=== PATIENT | male | born 1940 | race Caucasian/White ===

== ENCOUNTER 2021-02-03 11:50 | Inpatient (IN) ==
[2021-02-03] MEDS ORDERED: ONDANSETRON 4 MG/2 ML VIAL IV ONE ×2 (12:07→12:31)
[2021-02-03] MEDS ORDERED: HYDROmorphone 0.5 MG/0.5 ML SYRINGE IV PRN (12:07)
--- NOTE | 2021-02-03 12:17 | Emergency Department Note ---
HPI <Yany Shaikh PA-C - Last Filed: 02/03/21 14:13> General Chief complaint: Extremity Injury, Lower Stated complaint: Fall, hip pain Time Seen by Provider: 02/03/21 12:11 Source: EMS Mode of arrival: EMS History of Present Illness HPI Narrative: Narrative: This patient presents by EMS with a complaint of right hip pain. Patient reports he stumbled and fell. He did land on his backside. He felt immediate p ain to his right buttock and right hip. He was not able to get up. EMS was notified. They did find him unable to stand or move without excruciating pain. Patient reports he did not strike his head or lose conscious when he fell. He does not take blood thinners. He reports no other injuries. Related Data Previous Rx's Medication Instructions Recorded atorvastatin 20 mg tablet (Lipitor) 20 mg PO QDAY #90 tab 01/02/21 lisinopril 20 mg tablet 20 mg PO QDAY #90 tab 01/02/21 metformin 500 mg tablet,extended 500 mg PO QDAY #90 tab 01/02/21 release 24 hr tamsulosin 0.4 mg capsule (Flomax) 0.4 mg PO QHS #90 cap 01/02/21 Allergies Allergy/AdvReac Type Severity Reaction Status Date / Time Penicillins Allergy Unknown Unknown Verified 02/03/21 11:50 Review of Systems <Yany Shaikh PA-C - Last Filed: 02/03/21 14:13> ROS ROS Narrative: Narrative: Pertinent positives and negatives as noted in HPI. All other systems reviewed and negative. PFSH <Yany Shaikh PA-C - Last Filed: 02/03/21 14:13> Narrative Patient History Narrative: Narrative: Medical/Surgical/Family History All Active Problems (Updated 02/03/21 @ 14:30 by Harjinder Russo MD) Chronic kidney disease (CKD) stage G3a/A1, moderately decreased glomerular filtration rate (GFR) between 45-59 mL/min/1.73 square meter and albuminuria creatinine ratio less than 30 mg/g (Acute) Closed fracture of right hip (Acute) Medicare annual wellness visit, initial (Acute) Medicare annual wellness visit, initial (Acute) Wellness examination (Chronic) Chronic knee pain (Chronic) Metabolic syndrome (Chronic) Dyslipidemia (Chronic) Hypertension (Chronic) Type 2 diabetes mellitus (Chronic) Medical History Chronic knee pain Dyslipidemia Hypertension Medicare annual wellness visit, initial Medicare annual wellness visit, initial Metabolic syndrome Type 2 diabetes mellitus Wellness examination 11/20/17 Surgical History History of cataract surgery History of colonoscopy (12/04/12) 02/26/072012 History of surgery broken lower right leg Family History Other No pertinent family history Social History Smoking Status: Former smoker Alcohol Intake Frequency: holiday/special occasion only Substance Use: does not use Exam <Yany Shaikh PA-C - Last Filed: 02/03/21 14:13> Narrative Narrative: Narrative: Vital signs noted General: mild distress. Skin: Warm. Dry. No rash. Normal color. Eyes: PERRL. EOMI. Mouth: Membranes moist. Normal inspection. Neck: Good ROM. No meningeal signs. Supple. Cardiovascular: Regular rate and rhythm. No murmur. Respiratory: No respiratory distress. Breath sounds equal. Gastrointestinal: Abdomen soft. No tenderness. Back: Normal inspection. No midline tenderness. Extremities: Tenderness palpation of the right hip. No crepitus or obvious deformity. Exam is somewhat limited due to patient positioning. Neurovascular intact to the digits. Intact dorsalis pedis pulse to the right. Neurological: No focal neurological deficits observed. Alert. Oriented x 3 Course <Yany Shaikh PA-C - Last Filed: 02/03/21 14:13> Course Course Narrative: An IV is established and the patient is medicated with Dilaudid for pain. Zofran is given for nausea. X-rays of the right hip are reviewed by myself significant for intertrochanteric fracture. 1 view chest x-ray is without acute changes. EKG shows sinus rhythm of 54. QRS complexes are narrow at regular intervals. No ST elevation or depression. Patient is discussed with on-call orthopedic surgeon Dr. Medina who anticipates being able to repair the hip today. Patient last ate at 10 AM. Patient is also discussed with the hospitalist service and is excepted as the patient. Vital Signs Vital signs: Vital Signs Temperature 97.3 F 02/03/21 11:50 Pulse Rate 65 02/03/21 11:50 Respiratory Rate 16 02/03/21 11:50 Blood Pressure 139/47 02/03/21 11:50 Pulse Oximetry (%) 92 02/03/21 11:50 Temperature 97.2 F 02/03/21 15:50 Pulse Rate 62 02/03/21 15:50 Respiratory Rate 16 02/03/21 15:50 Blood Pressure 120/54 02/03/21 15:50 Pulse Oximetry (%) 91 02/03/21 15:50 MDM <Yany Shaikh PA-C - Last Filed: 02/03/21 14:13> MDM Narrative Medical decision making narrative: Narrative: Lab Data Result diagrams: 02/03/21 13:23 02/03/21 13:23 Labs: Lab Results 02/03/21 02/03/21 02/03/21 Range/Units 13:23 13:23 13:23 WBC 7.7 (4.5-11.0) K/mcL RBC 3.99 L (4.63-6.08) M/mcL Hgb 12.7 L (13.7-17.5) g/dL Hct 39.0 L (40.1-51.0) % MCV 97.7 (80.0-100.0) fL MCH 31.8 (26.0-34.0) pg MCHC 32.6 (31.0-36.0) g/dL RDW 12.4 (11.5-14.5) % Plt Count 197 (140-440) K/mcL MPV 10.5 H (7.4-10.4) fL Neut % (Auto) 71.8 (38.0-78.0) % Lymph % (Auto) 16.1 (15.5-49.0) % [place] % (Auto) 10.4 (1.0-12.0) % Eos % (Auto) 1.0 (0.0-7.0) % Baso % (Auto) 0.7 (0.0-2.0) % Lymph # (Auto) 1.24 L (1.50-4.80) K/mcL [place] # (Auto) 0.80 (0.10-0.90) K/mcL Eos # (Auto) 0.08 (0.00-0.70) K/mcL Baso # (Auto) 0.05 (0.00-0.30) K/mcL Absolute Neutrophils 5.52 (1.80-8.00) K/mcL PT 12.5 (11.9-14.5) sec INR 0.9 (0.9-1.1) Sodium 135 (133-145) mmol/L Potassium 4.7 (3.3-5.1) mmol/L Chloride 101 (96-108) mmol/L Carbon Dioxide 23 (22-30) mmol/L Anion Gap 11.0 (8.0-16.0) BUN 23 (8-23) mg/dL Creatinine 1.1 (0.7-1.2) mg/dL GFR Calculation 62 Glucose 166 H (70-105) mg/dL Calcium 9.5 (8.6-10.4) mg/dL Total Bilirubin 0.5 (0.1-1.0) mg/dL AST 16 (<40) U/L ALT 22 (<40) U/L Alkaline Phosphatase 93 (39-117) U/L Total Protein 6.8 (5.9-8.4) gm/dL Albumin 3.8 (3.2-5.2) gm/dL Globulin 3.0 (2.2-3.7) gm/dL Albumin/Globulin Ratio 1.3 (1.0-2.3) Urine Color Urine Appearance (Clear) Urine pH (5.0-9.0) Ur Specific [place] (1.000-1.035) Urine Protein (Negative) mg/dL Urine Glucose (UA) (Negative) mg/dL Urine Ketones (Negative) mg/dL Urine Occult Blood (Negative) mg/dL Urine Nitrate (Negative) Urine Bilirubin (Negative) mg/dL Urine Urobilinogen mg/dL Ur Leukocyte Esterase (Negative) /uL Ur Culture Indicated? 02/03/21 Range/Units 14:31 WBC (4.5-11.0) K/mcL RBC (4.63-6.08) M/mcL Hgb (13.7-17.5) g/dL Hct (40.1-51.0) % MCV (80.0-100.0) fL MCH (26.0-34.0) pg MCHC (31.0-36.0) g/dL RDW (11.5-14.5) % Plt Count (140-440) K/mcL MPV (7.4-10.4) fL Neut % (Auto) (38.0-78.0) % Lymph % (Auto) (15.5-49.0) % [place] % (Auto) (1.0-12.0) % Eos % (Auto) (0.0-7.0) % Baso % (Auto) (0.0-2.0) % Lymph # (Auto) (1.50-4.80) K/mcL [place] # (Auto) (0.10-0.90) K/mcL Eos # (Auto) (0.00-0.70) K/mcL Baso # (Auto) (0.00-0.30) K/mcL Absolute Neutrophils (1.80-8.00) K/mcL PT (11.9-14.5) sec INR (0.9-1.1) Sodium (133-145) mmol/L Potassium (3.3-5.1) mmol/L Chloride (96-108) mmol/L Carbon Dioxide (22-30) mmol/L Anion Gap (8.0-16.0) BUN (8-23) mg/dL Creatinine (0.7-1.2) mg/dL GFR Calculation Glucose (70-105) mg/dL Calcium (8.6-10.4) mg/dL Total Bilirubin (0.1-1.0) mg/dL AST (<40) U/L ALT (<40) U/L Alkaline Phosphatase (39-117) U/L Total Protein (5.9-8.4) gm/dL Albumin (3.2-5.2) gm/dL Globulin (2.2-3.7) gm/dL Albumin/Globulin Ratio (1.0-2.3) Urine Color Yellow Urine Appearance Hazy A (Clear) Urine pH 5.0 (5.0-9.0) Ur Specific [place] 1.016 (1.000-1.035) Urine Protein Negative (Negative) mg/dL Urine Glucose (UA) Negative (Negative) mg/dL Urine Ketones Negative (Negative) mg/dL Urine Occult Blood Negative (Negative) mg/dL Urine Nitrate Negative (Negative) Urine Bilirubin Negative (Negative) mg/dL Urine Urobilinogen Negative mg/dL Ur Leukocyte Esterase Negative (Negative) /uL Ur Culture Indicated? No ED POC Tests ED POC Tests: [place] - SARS Antigen Negative Discharge Plan Patient/Caregiver Discharge Instructions Pt seen by [employer]/PA only: Yes Clinical Impression: Closed fracture of right hip Patient Disposition: Xfer As Outpt/Obs ([facility]) Discharge Date/Time: 02/03/21 14:48
--- NOTE | 2021-02-03 12:28 | Emergency Department Note ---
HPI General Chief complaint: Extremity Injury, Lower Stated complaint: Fall, hip pain Time Seen by Provider: 02/03/21 12:11 Source: EMS Mode of arrival: EMS History of Present Illness HPI Narrative: Narrative: This patient presents with complaints of pain, redness and warmth to the left lower leg. She is noted this for the last several days. She reports she was seen at [facility] and was started on diuretics. The redness and pain has worsened. She is concerned she may have an infection. She has felt febrile as well as chilled. She has not had any nausea or vomiting. She denies any trauma or injury. 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 She has been doing well with that and has been ambulating without difficulty until her current symptoms developed. Related Data Home Medications Medication Instructions Recorded Confirmed Tonny Contour Next Test Invitr Strp .ROUTE 11/12/17 12/28/20 Tonny Microlet Lancets .ROUTE 11/12/17 12/28/20 Misc(Lancets) Previous Rx's Medication Instructions Recorded ipratropium bromide 21 mcg (0.03 2 spray INTRANASAL BID-TID PRN #30 07/20/20 %) nasal spray ml atorvastatin 20 mg tablet (Lipitor) 20 mg PO QDAY #90 tab 01/02/21 lisinopril 20 mg tablet 20 mg PO QDAY #90 tab 01/02/21 metformin 500 mg tablet,extended 500 mg PO QDAY #90 tab 01/02/21 release 24 hr tamsulosin 0.4 mg capsule (Flomax) 0.4 mg PO QHS #90 cap 01/02/21 Allergies Allergy/AdvReac Type Severity Reaction Status Date / Time Penicillins Allergy Unknown Unknown Verified 02/03/21 11:50 Review of Systems ROS ROS Narrative: Narrative: Pertinent positives and negatives as noted in HPI. All other systems reviewed and negative. PFSH Narrative Patient History Narrative: Narrative: Medical/Surgical/Family History All Active Problems Medicare annual wellness visit, initial (Acute) Medicare annual wellness visit, initial (Acute) Wellness examination (Chronic) Chronic knee pain (Chronic) Metabolic syndrome (Chronic) Dyslipidemia (Chronic) Hypertension (Chronic) Type 2 diabetes mellitus (Chronic) Medical History Chronic knee pain Dyslipidemia Hypertension Medicare annual wellness visit, initial Medicare annual wellness visit, initial Metabolic syndrome Type 2 diabetes mellitus Wellness examination 11/20/17 Surgical History History of cataract surgery History of colonoscopy (12/04/12) 02/26/072012 History of surgery broken lower right leg Family History Other No pertinent family history Social History Smoking Status: Former smoker Alcohol Intake Frequency: holiday/special occasion only Substance Use: does not use Exam Narrative Narrative: Narrative: Vital signs noted General: mild distress. Skin: Warm. Dry. No rash. Normal color. Eyes: PERRL. EOMI. Mouth: Membranes moist. Normal inspection. Neck: Good ROM. No meningeal signs. Supple. Cardiovascular: Regular rate and rhythm. No murmur. Respiratory: No respiratory distress. Breath sounds equal. No wheezing/rales/rhonchi. Gastrointestinal: Abdomen soft. No tenderness. No distention. Normal bowel sounds. No rebound tenderness or guarding. Extremities: Erythema, warmth and tenderness noted to the left lower leg. Erythema extends in a sock fashion up to the mid briones. It is predominantly to the lateral aspect. There are no blisters or bulla. No weeping. Warmth and skin thickening noted. Dorsalis pedis pulse intact. Neurological: No focal neurological deficits observed. Alert. Oriented x 3 Course Course Course Narrative: An IV is established in anticipation of antibiotic administration Labs ordered reviewed Vital Signs Vital signs: Vital Signs Temperature 97.3 F 02/03/21 11:50 Pulse Rate 65 02/03/21 11:50 Respiratory Rate 16 02/03/21 11:50 Blood Pressure 139/47 02/03/21 11:50 Pulse Oximetry (%) 92 02/03/21 11:50 Temperature 97.3 F 02/03/21 11:50 Pulse Rate 65 02/03/21 11:50 Respiratory Rate 16 02/03/21 11:50 Blood Pressure 139/47 02/03/21 11:50 Pulse Oximetry (%) 92 02/03/21 11:50 MDM MDM Narrative Medical decision making narrative: Narrative: Discharge Plan Patient/Caregiver Discharge Instructions Follow up with: Oreland,Jessica S., DO [Primary Care Provider] - Prescriptions: No Action metformin 500 mg tablet extended release 24 hr 500 mg PO QDAY Qty: 90 1RF lisinopril 20 mg tablet 20 mg PO QDAY Qty: 90 1RF atorvastatin [Lipitor] 20 mg tablet 20 mg PO QDAY Qty: 90 1RF tamsulosin [Flomax] 0.4 mg capsule 0.4 mg PO QHS Qty: 90 1RF Tonny Microlet Lancets Misc(Lancets) .Route 0RF Label Comments: .Route Rx Instructions: .Route Tonny Contour Next Test Invitr Strp .Route 0RF Label Comments: .Route Rx Instructions: .Route ipratropium bromide 0.03 % spray,non-aerosol 2 spray INTRANASAL BID-TID PRN (Reason: allergy symptoms) Qty: 30 5RF Rx Instructions: administer into each nostril
--- NOTE | 2021-02-03 13:44 | XRay Report ---
INDICATION: fall, hip pain TECHNIQUE: AP pelvis. AP and lateral right hip COMPARISON: None. FINDINGS: Comminuted intertrochanteric right hip fracture with varus angulation and medial displacement. Pelvis is negative. No fracture. No lytic lesion. Sacrum is negative. Left hip is negative. Prominent fecal material consistent with constipation IMPRESSION: Comminuted displaced right intratrochanteric hip fracture Interpreted and Authenticated by: Sean Gomes 02/03/21
--- NOTE | 2021-02-03 13:52 | XRay Report ---
INDICATION: pre-op. Hip fracture TECHNIQUE: AP supine chest x-ray COMPARISON: None FINDINGS: Lungs:Focal parenchymal density in left upper lobe. Follow-up PA and lateral chest x-ray when clinically appropriate. No parenchymal consolidation. No evidence for pneumonia. Heart, vascular:No significant cardiomegaly. Pulmonary vascularity is normal. No pulmonary edema or pulmonary congestion Mediastinum, renetta:No mediastinal widening. No hilar mass Pleura:No pleural fluid. No pleural-based mass or calcification Skeletal:Negative. IMPRESSION: 1. Focal density left upper lobe may be chronic. Follow-up PA and lateral chest x-ray recommended for better evaluation 2. Otherwise negative AP supine chest x-ray Interpreted and Authenticated by: Sean Gomes 02/03/21
[2021-02-03] MEDS ORDERED: 0.9 % SODIUM CHLORIDE 1,000 ML IV SCH ×2 (14:00→15:01)
[2021-02-03 14:10] LABS: Basophils # (Auto) 0.05 K/mcL (0.00-0.30); Basophils % (Auto) 0.7 % (0.0-2.0); Eosinophils # (Auto) 0.08 K/mcL (0.00-0.70); Hemoglobin 12.7 g/dL (13.7-17.5); Lymphocytes # (Auto) 1.24 K/mcL (1.50-4.80); Lymphocytes % (Auto) 16.1 % (15.5-49.0); Mean Cell Volume 97.7 fL (80.0-100.0); Mean Corpuscular HGB Conc 32.6 g/dL (31.0-36.0); Mean Platelet Volume 10.5 fL (7.4-10.4); Monocytes % (Auto) 10.4 % (1.0-12.0); Neutrophils % (Auto) 71.8 % (38.0-78.0); Platelet Count 197 K/mcL (140-440); RBC 3.99 M/mcL (4.63-6.08); Red Cell Distribution Width 12.4 % (11.5-14.5); WBC 7.7 K/mcL (4.5-11.0)
[2021-02-03] MEDS ORDERED: DEXTROSE 31 GM ORAL.SUSP PO PRN ×2 (14:13→15:01)
[2021-02-03] MEDS ORDERED: DEXTROSE 50% 50 ML VIAL IV PRN ×2 (14:13→15:01)
--- NOTE | 2021-02-03 14:17 | Internal Med History&Physical ---
HPI History of Present Illness Patient information: Note initiated : 02/03/21 at 2:15 pm Service Date, if different from initiated Date: [] Patient: Cirilo Matthew 80 y/o M admitted on for Fall, hip pain. Chief Complaint: [right hip fracture] Chief complaint: right hip fracture History of present illness: Mr. Matthew is a 80 year old M history of essential hypertension, mixed dyslipidemia, insulin-dependent type 2 diabetes mellitus, chronic kidney disease stage III, presenting with accidental fall with right hip fractures. Earlier today, patient's was in his friend's house and he was walking down the stairs and he stumbled and fell landing with his right side. He denies any chest pain, palpitations, confusions, lightheadedness, dizziness, or loss of consciousness right before, during, or after the accident. He currently denies any right hip pain at rest. Vital signs at ED presentations were all within normal limits. Labs significant with lack of leukocytosis with WBC 7.7. H&H 12.7 and 39.0, res pectively. Chemistry pending. Hip x-ray showing comminuted displaced right intratrochanteric hip fracture. PFSH PFSH All Active Problems (Updated 02/03/21 @ 14:30 by Harjinder Russo MD) Chronic kidney disease (CKD) stage G3a/A1, moderately decreased glomerular filtration rate (GFR) between 45-59 mL/min/1.73 square meter and albuminuria creatinine ratio less than 30 mg/g (Acute) Closed fracture of right hip (Acute) Medicare annual wellness visit, initial (Acute) Medicare annual wellness visit, initial (Acute) Wellness examination (Chronic) Chronic knee pain (Chronic) Metabolic syndrome (Chronic) Dyslipidemia (Chronic) Hypertension (Chronic) Type 2 diabetes mellitus (Chronic) Medical History Chronic knee pain Dyslipidemia Hypertension Medicare annual wellness visit, initial Medicare annual wellness visit, initial Metabolic syndrome Type 2 diabetes mellitus Wellness examination 11/20/17 Surgical History History of cataract surgery History of colonoscopy (12/04/12) 02/26/072012 History of surgery broken lower right leg Family History Other No pertinent family history Social History marital status: occupational status: retired alcohol intake frequency: holiday/special occasion only substance use type: does not use MEDS/ALLERGIES Home Medications and Allergies Home Medications Medication Instructions Recorded Confirmed Type Tonny Contour Next Test Invitr Strp .ROUTE 11/12/17 12/28/20 History Tonny Microlet Lancets .ROUTE 11/12/17 12/28/20 History Misc(Lancets) ipratropium bromide 21 mcg (0.03 2 spray INTRANASAL BID-TID PRN #30 07/21/19 12/28/20 Rx %) nasal spray ml atorvastatin 20 mg tablet (Lipitor) 20 mg PO QDAY #90 tab 01/02/21 Rx lisinopril 20 mg tablet 20 mg PO QDAY #90 tab 01/02/21 Rx metformin 500 mg tablet,extended 500 mg PO QDAY #90 tab 01/02/21 Rx release 24 hr tamsulosin 0.4 mg capsule (Flomax) 0.4 mg PO QHS #90 cap 01/02/21 Rx Allergies Allergy/AdvReac Type Severity Reaction Status Date / Time Penicillins Allergy Unknown Unknown Verified 02/03/21 11:50 EXAM Constitutional Vitals: Temp Pulse Resp BP Pulse Ox 36.3 C 59 L 16 122/48 95 02/03/21 11:50 02/03/21 14:01 02/03/21 11:50 02/03/21 14:01 02/03/21 14:01 General appearance: cooperative and no acute distress Head Head exam: Present atraumatic and normocephalic Eye Eye exam: Present EOMI and PERRL ENT ENT exam: Present mucous membranes moist, normal exam and normal external ear exam Neck Neck exam: Present normal inspection; Absent lymphadenopathy, tenderness or thyromegaly Respiratory Respiratory exam: Absent accessory muscle use, respiratory distress or wheezes Cardiovascular Cardiovascular exam: Present normal rate and rhythm; Absent JVD GI/Abdominal GI/Abdominal exam: Present normal bowel sounds and soft; Absent organomegaly or tenderness Rectal Rectal exam: Present deferred Extremities Exam Extremities exam: Present normal capillary refill and tenderness; Absent full ROM or normal inspection Neurological Exam Neurological exam: Present alert, CN II-XII intact and oriented X3; Absent motor sensory deficit Psychiatric Psychiatric exam: Present normal affect and normal mood; Absent anxious or depressed Skin Skin exam: Present dry and intact DATA Data Completed and Pending Labs: Labs from last 24 hours 02/03/21 02/03/21 02/03/21 13:23 13:23 13:23 WBC 7.7 RBC 3.99 L Hgb 12.7 L Hct 39.0 L MCV 97.7 MCH 31.8 MCHC 32.6 RDW 12.4 Plt Count 197 MPV 10.5 H Neut % (Auto) 71.8 Lymph % (Auto) 16.1 Door % (Auto) 10.4 Eos % (Auto) 1.0 Baso % (Auto) 0.7 Lymph # (Auto) 1.24 L Door # (Auto) 0.80 Eos # (Auto) 0.08 Baso # (Auto) 0.05 Absolute Neutrophils 5.52 PT Pending INR Pending Sodium Pending Potassium Pending Chloride Pending Carbon Dioxide Pending Anion Gap Pending BUN Pending Creatinine Pending GFR Calculation Pending Glucose Pending Calcium Pending Total Bilirubin Pending AST Pending ALT Pending Alkaline Phosphatase Pending Total Protein Pending Albumin Pending Globulin Pending Albumin/Globulin Ratio Pending A/P Assessment and plan (1) Closed fracture of right hip: Status: Acute (2) Dyslipidemia: Status: Chronic (3) Hypertension: Status: Chronic (4) Type 2 diabetes mellitus: Status: Chronic (5) Chronic kidney disease (CKD) stage G3a/A1, moderately decreased glomerular filtration rate (GFR) between 45-59 mL/min/1.73 square meter and albuminuria creatinine ratio less than 30 mg/g: Status: Acute Narrative A/P Narrative: Assessment and Plans: 1. Right comminuted displaced right intratrochanteric hip fracture: Admit to inpatient med surg Dr. Medina consulted for possible surgery ORIF this afternoon vs tomorrow NPO for now and NS@100cc/hr Bed rest Tylenol PRN mild pain Oxycodone PRN moderate pain Morphine IV PRN severe pain Physical therapy Occupational therapy 2. T2DM: HgA1c Hold Metformin Low dose correctional scale insulin AC HS Accu Chek AC HS Hypoglycemia protocol NPO for now and NS@100cc/hr, diabetic diet after surgery 3. Essential HTN: Currently soft blood pressure Hold oral antihypertensives for now 4. Mixed dyslipidemia: Statin therapy 5. Chronic kidney disease stage 3: Avoid nephrotoxic agents NS@100cc/hr CMP in the morning to trend kidney functions GI ppx: not currently indicated DVT ppx: SCDs Code status: Full Prognosis: stable Disposition: inpatient med surg; PT OT Time Spent With Patient Time: Total time spent is greater than 50% in coordination of care (as documented) at patient's floor/unit and/or counseling patient: Total time spent with greater than 50% in coordination of care (as documented) at patient's floor/unit and/or counseling patient:: 25 - 35 minutes
[2021-02-03 14:30] LABS: ALT/SGPT 22 U/L (<40); AST/SGOT 16 U/L (<40); Albumin 3.8 gm/dL (3.2-5.2); Albumin/Globulin Ratio 1.3 (1.0-2.3); Alkaline Phosphatase 93 U/L (39-117); Bilirubin,Total 0.5 mg/dL (0.1-1.0); Blood Urea Nitrogen 23 mg/dL (8-23); Calcium 9.5 mg/dL (8.6-10.4); Carbon Dioxide 23 mmol/L (22-30); Chloride 101 mmol/L (96-108); Glomerular Filtration Rate 62; Glucose 166 mg/dL (70-105)
[2021-02-03 14:47] LABS: INR 0.9 (0.9-1.1); Prothrombin Time 12.5 sec (11.9-14.5)
[2021-02-03] MEDS ORDERED: IPRATROPIUM 0.03% NASAL SPRAY BOTTLE 30ML NAS PRN (15:01)
[2021-02-03] MEDS ORDERED: ZOLPIDEM 5 MG TABLET PO PRN (15:01)
[2021-02-03] MEDS ORDERED: ACETAMINOPHEN 325 MG TABLET PO PRN (15:01)
[2021-02-03] MEDS ORDERED: IPRATROPIUM/ALBUTEROL 3 ML AMPUL.NEB NEB PRN ×2 (15:01→18:45)
[2021-02-03] MEDS ORDERED: morphine 4 MG/ML VIAL IV PRN ×2 (15:01→19:11)
[2021-02-03] MEDS ORDERED: ONDANSETRON 4 MG/2 ML VIAL IV PRN (15:01)
[2021-02-03] MEDS ORDERED: oxyCODONE HCL 5 MG TABLET PO PRN (15:01)
[2021-02-03 15:35] LABS: Appearance,Urine HAZY (Clear); Bilirubin,Urine Negative (Negative); Color,Urine YELLOW; Culture Indicated,Urine No; Glucose,Urine (UA) Negative (Negative); Ketones,Urine Negative (Negative); Leukocyte Esterase,Urine Negative /uL (Negative); Nitrate,Urine Negative (Negative); Protein,Urine Negative (Negative); Specific Gravity,Urine 1.016 (1.000-1.035); Urine Blood Negative (Negative); Urobilinogen,Urine Negative
[2021-02-03] MEDS: INSULIN LISPRO 1 UNIT/0.01 ML UNIT SQ SCH ×2 (16:06→20:40)
[2021-02-03] MEDS ORDERED: INSULIN LISPRO 1 UNIT/0.01 ML UNIT SQ SCH (17:00)
--- NOTE | 2021-02-03 17:17 | Orthopedic History & Physical ---
HPI History of Present Illness Patient information: Note initiated : 02/03/21 at 5:05 pm Service Date, if different from initiated Date: [] Patient: Cirilo Matthew 80 y/o M admitted on 02/03/21 for Fall, hip pain. Chief Complaint: [right hp pain s/p fall ] History of present illness: Mr. Matthew is a 80 year old diabetic resident of [place] who was visiting a friend when he suffered a mechanical fall, he was transported to [facility] ED where imaging revealed a intertrochanteric fracture of the right hip. Dr. Medina of orthopedics was consulted for treatment. Review of Systems All systems: reviewed and no additional remarkable complaints except as stated PFSH PFSH All Active Problems Chronic kidney disease (CKD) stage G3a/A1, moderately decreased glomerular filtration rate (GFR) between 45-59 mL/min/1.73 square meter and albuminuria creatinine ratio less than 30 mg/g (Acute) Closed fracture of right hip (Acute) Medicare annual wellness visit, initial (Acute) Medicare annual wellness visit, initial (Acute) Wellness examination (Chronic) Chronic knee pain (Chronic) Metabolic syndrome (Chronic) Dyslipidemia (Chronic) Hypertension (Chronic) Type 2 diabetes mellitus (Chronic) Medical History Chronic knee pain Dyslipidemia Hypertension Medicare annual wellness visit, initial Medicare annual wellness visit, initial Metabolic syndrome Type 2 diabetes mellitus Wellness examination 11/20/17 Surgical History History of cataract surgery History of colonoscopy (12/04/12) 02/26/072012 History of surgery broken lower right leg Family History Other No pertinent family history Social History marital status: occupational status: retired alcohol intake frequency: holiday/special occasion only substance use type: does not use MEDS/ALLERGIES Home Medications and Allergies Home Medications Medication Instructions Recorded Confirmed Type atorvastatin 20 mg tablet (Lipitor) 20 mg PO QDAY #90 tab 01/02/21 02/03/21 Rx lisinopril 20 mg tablet 20 mg PO QDAY #90 tab 01/02/21 02/03/21 Rx metformin 500 mg tablet,extended 500 mg PO QDAY #90 tab 01/02/21 02/03/21 Rx release 24 hr tamsulosin 0.4 mg capsule (Flomax) 0.4 mg PO QHS #90 cap 01/02/21 02/03/21 Rx Allergies Allergy/AdvReac Type Severity Reaction Status Date / Time Penicillins Allergy Unknown Unknown Verified 02/03/21 11:50 Physical Examination Narrative Narrative: Narrative: Results Labs Result Diagrams: 02/03/21 13:23 02/03/21 13:23 Labs: Abnormal lab results 02/03/21 02/03/21 02/03/21 Range/Units 13:23 13:23 14:31 RBC 3.99 L (4.63-6.08) M/mcL Hgb 12.7 L (13.7-17.5) g/dL Hct 39.0 L (40.1-51.0) % MPV 10.5 H (7.4-10.4) fL Lymph # (Auto) 1.24 L (1.50-4.80) K/mcL Glucose 166 H (70-105) mg/dL Urine Appearance Hazy A (Clear) H & H 02/03/21 Range/Units 13:23 Hgb 12.7 L (13.7-17.5) g/dL Hct 39.0 L (40.1-51.0) % Coagulation 02/03/21 Range/Units 13:23 INR 0.9 (0.9-1.1) All other labs normal. A/P Narrative A/P Narrative: On exam patient is seated in bed in no acute distress. lungs are equal and clear bilat and heart is normal rate and rhythm. eyes are SHAILA and mucus membranes are moist. Chest, abdomen, and left side pelvis are non-tender to palpation. He is able to move all four extremities which are warm, well perfused and neuro intact. At the right hip and pelvis area there is tenderness to palpation and with any ROM. Imaging is consistent with a intertrochanteric hip fracture. Options were presented to the patient including non-surgical and surgery non- surgical carries the risks of increased pain, loss of ROM and further injury to nerves and blood vessels. Surgical option consiting of open reduction internal fixation via TFNA hip nail to take place with Dr. Medina surgeon and Zhou BORRERO to take place semi emergently. Surgical risks were explained to the patient to include but not limited to: pain, bleeding, infection, injury to adjacent structures, need for further surgery, implant failure, stroke risk, cardiac risk, anesthesia reactions and . Patient understands these risks and wishes to proceed with surgery. Time Spent With Patient Time: Total time spent is greater than 50% in coordination of care (as documented) at patient's floor/unit and/or counseling patient:
[2021-02-03] MEDS ORDERED: PHENYLephrine 1 MG/10 ML SYRINGE (ANEST) ONE (17:45)
[2021-02-03] MEDS ORDERED: fentaNYL 100 MCG/2 ML VIAL IV ONE (17:45)
[2021-02-03] MEDS ORDERED: GLYCOPYRROLATE 0.2 MG/ML VIAL IV ONE (17:45)
[2021-02-03] MEDS ORDERED: ceFAZolin 2 GM in DEXTROSE 5% IN WATER 50 ML IV SCH ×2 (17:45→19:15)
[2021-02-03] MEDS ORDERED: ONDANSETRON 4 MG/2 ML VIAL ONE (17:45)
[2021-02-03] MEDS ORDERED: LIDOCAINE HCL/PF 100 MG/5 ML SYRINGE IV ONE (17:45)
[2021-02-03] MEDS ORDERED: MAGNESIUM SULFATE 2 GM/50 ML BAG IV ONE (17:45)
[2021-02-03] MEDS ORDERED: TRANEXAMIC ACID 1,000 MG/10 ML VIAL ONE (17:45)
[2021-02-03] MEDS ORDERED: PROPOFOL 200 MG/20 ML VIAL IV ONE (17:45)
[2021-02-03] MEDS ORDERED: KETAMINE 50 MG/ML Syringe (ANEST) IV ONE (17:45)
[2021-02-03] MEDS ORDERED: MIDAZOLAM 2 MG/2 ML VIAL ONE (17:45)
[2021-02-03] MEDS ORDERED: LACTATED RINGERS 1,000 ML IV SCH (18:45)
[2021-02-03] MEDS ORDERED: LACTATED RINGERS 250 ML IV PRN (18:45)
[2021-02-03] MEDS ORDERED: fentaNYL 100 MCG/2 ML VIAL IV PRN (18:45)
[2021-02-03] MEDS ORDERED: FLUMAZENIL 0.1 MG/ML ML IV PRN (18:45)
[2021-02-03] MEDS ORDERED: METHOCARBAMOL 1,000 MG/10 ML VIAL IV PRN (18:45)
[2021-02-03] MEDS ORDERED: ACETAMINOPHEN 1,000 MG/100 ML BAG IV ONE ×2 (18:45→19:10)
[2021-02-03] MEDS ORDERED: NALOXONE HCL 0.4 MG/ML VIAL IV PRN (18:45)
--- NOTE | 2021-02-03 19:08 | General Surgery Procedure Note ---
Date of procedure: Note initiated : 02/03/21 at 7:07 pm Service Date, if different from initiated Date: [] Pre-op diagnosis: right hip intertrochanteric fracture Post-op diagnosis: same Procedure: right hip TFNa nail Anesthesia: ARNALDO Surgeon: Sean Medina Balloon Tester: Carlton Diaz Estimated blood loss: 100 Pathology: none sent Condition: stable Disposition: PACU
--- NOTE | 2021-02-03 19:10 | Discharge Plan ---
DC Instructions-General Patient Instructions Dressing Care: May shower in 2 days Discharge Plan Patient/Caregiver Discharge Instructions Activity: as per physical therapy and as instructed Diet: Regular Diet Prescriptions: No Action metformin 500 mg tablet extended release 24 hr 500 mg PO QDAY Qty: 90 1RF lisinopril 20 mg tablet 20 mg PO QDAY Qty: 90 1RF atorvastatin [Lipitor] 20 mg tablet 20 mg PO QDAY Qty: 90 1RF tamsulosin [Flomax] 0.4 mg capsule 0.4 mg PO QHS Qty: 90 1RF Follow Up Plan Follow up with: Sean Medina MD [Physician] - Jessica Parker DO [Primary Care Provider] - Patient Disposition: Xfer SNF Rehab Potential: Good I certify that the patient requires SNF services: Yes Overall status at discharge: patient is progressing back to baseline Discharge Orders: Discharge Order (Routine); Ordered 02/03/21 Ordered By: Sean Medina Discharge Comment: cc: hip fracture
--- NOTE | 2021-02-03 19:10 | XRay Report ---
INDICATION: right hip nailing TECHNIQUE: Intraoperative fluoroscopy and spot films utilized. Reduction and internal fixation of an intertrochanteric and subtrochanteric right hip fracture performed. 1.4 minutes fluoroscopy and 18.2 mGy exposure utilized IMPRESSION: 1. Intraoperative fluoroscopy and spot films as above 2. Open reduction and internal fixation of right intertrochanteric and subtrochanteric hip fracture Interpreted and Authenticated by: Sean Gomes 02/03/21
[2021-02-03] MEDS ORDERED: METHOCARBAMOL 750 MG TABLET PO PRN (19:11)
[2021-02-03] MEDS ORDERED: BISACODYL 10 MG SUPP.RECT PR PRN (19:11)
[2021-02-03] MEDS ORDERED: MAGNESIUM HYDROXIDE 30 ML ORAL.SUSP PO PRN (19:11)
[2021-02-03] MEDS ORDERED: BENZOCAINE/MENTHOL 1 LOZENGE PO PRN (19:11)
[2021-02-03] MEDS ORDERED: POLYETHYLENE GLYCOL 3350 17 GM PACKET PO PRN (19:11)
[2021-02-03] MEDS ORDERED: FLEETS ADULT ENEMA PR PRN (19:11)
[2021-02-03] MEDS ORDERED: ONDANSETRON 4 MG ODT TABLET SL PRN (19:11)
[2021-02-03] MEDS ORDERED: METHOCARBAMOL 1,000 MG/10 ML VIAL ONE (19:13)
[2021-02-03] MEDS: LACTATED RINGERS 1,000 ML IV SCH ×2 (19:51→23:53)
[2021-02-03] MEDS: ASPIRIN 81 MG TAB.CHEW PO SCH (20:40)
[2021-02-03] MEDS: TAMSULOSIN 0.4 MG CAPSULE PO SCH (20:40)
[2021-02-03] MEDS: DOCUSATE SODIUM 100 MG CAPSULE PO SCH (20:40)
[2021-02-03] MEDS: SENNOSIDES 1 TABLET PO SCH (20:40)
[2021-02-03] MEDS: 0.9 % SODIUM CHLORIDE 10 ML SYRINGE IV SCH (20:41)
[2021-02-03] MEDS ORDERED: DOCUSATE SODIUM 100 MG CAPSULE PO SCH (21:00)
[2021-02-03] MEDS ORDERED: SENNOSIDES 1 TABLET PO SCH (21:00)
[2021-02-03] MEDS: HYDROcodone/APAP 10/325MG TABLET PO PRN (22:20)
[2021-02-04] MEDS ORDERED: ceFAZolin 1 GM VIAL ONE (01:50)
[2021-02-04] MEDS: 0.9 % SODIUM CHLORIDE 10 ML SYRINGE IV SCH ×3 (04:15→20:41)
[2021-02-04] MEDS: LACTATED RINGERS 1,000 ML IV SCH ×2 (04:15→16:50)
[2021-02-04 06:59] LABS: Basophils # (Auto) 0 K/mcL (0.00-0.30); Basophils % (Auto) 0 % (0.0-2.0); Eosinophils # (Auto) 0 K/mcL (0.00-0.70); Eosinophils % (Auto) 0 % (0.0-7.0); Hematocrit 31.5 % (40.1-51.0); Hemoglobin 10.2 g/dL (13.7-17.5); Lymphocytes % (Auto) 4.2 % (15.5-49.0); Mean Cell Volume 97.2 fL (80.0-100.0); Mean Corpuscular HGB Conc 32.4 g/dL (31.0-36.0); Mean Platelet Volume 10.8 fL (7.4-10.4); Monocytes # (Auto) 0.78 K/mcL (0.10-0.90); Monocytes % (Auto) 6.6 % (1.0-12.0); Neutrophils % (Auto) 89.2 % (38.0-78.0); Platelet Count 191 K/mcL (140-440); RBC 3.24 M/mcL (4.63-6.08); Red Cell Distribution Width 12.5 % (11.5-14.5); WBC 11.9 K/mcL (4.5-11.0)
--- NOTE | 2021-02-04 07:06 | Orthopedic Progress Note ---
SUBJECTIVE Subjective Patient information: Note initiated : 02/04/21 at 7:03 am Service Date, if different from initiated Date: [] Patient: Cirilo Matthew 80 y/o M admitted on 02/03/21 for Fall, hip pain. Chief Complaint: [s/p right TFNA hip nail ] Pertinent ROS: 10 point ROS performed and is negative Constitutional Vitals: Vital Signs Temp Pulse Resp BP Pulse Ox 98.1 F 81 16 113/46 94 02/04/21 03:45 02/04/21 05:50 02/04/21 05:50 02/04/21 03:45 02/04/21 05:50 Period Temp Pulse Resp BP Sys/Sharif Pulse Ox Last 24 Hr 97.2 F-98.6 F 52-95 13-20 91-140/35-87 88-100 Intake and Output 02/03/21 02/04/21 02/04/21 21:59 05:59 13:59 Intake Total 1050 450 Output Total 375 625 Balance 675 -175 Weight 209 lb Intake & Output: Intake & Output 02/03/21 02/04/21 02/04/21 21:59 05:59 13:59 Intake Total 1050 450 Output Total 375 625 Balance 675 -175 Weight 209 lb Intake: IV 50 400 Lactated Ringers 1,000 ml @ 100 400 mls/hr IV .Q10H CHEN Rx#: [id number] Ancef 2 gm In Dextrose 5% in 50 Water 50 ml @ 100 mls/hr IV PREOP CHEN Rx#:[id number] Oral 0 50 IV - Manual Only 1000 Output: Urine Catheter Amount 300 625 Estimated Blood Loss 75 Other: Urine Appearance Clear Clear Uretheral (Cm) Clear Urine Color Bright Yellow Bright Yellow Uretheral (Cm) Bright Yellow OBJ DATA Labs CBC & Chem 7: 02/04/21 05:23 02/03/21 13:23 Labs: Abnormal Lab Results 02/04/21 02/03/21 02/03/21 05:23 14:31 13:23 WBC 11.9 H RBC 3.24 L Hgb 10.2 L Hct 31.5 L MPV 10.8 H Neut % (Auto) 89.2 H Lymph % (Auto) 4.2 L Lymph # (Auto) 0.50 L Absolute Neutrophils 10.61 H Glucose 166 H Urine Appearance Hazy A 11/12/21 13:23 WBC RBC 3.99 L Hgb 12.7 L Hct 39.0 L MPV 10.5 H Neut % (Auto) Lymph % (Auto) Lymph # (Auto) 1.24 L Absolute Neutrophils Glucose Urine Appearance Meds: Medications Acetaminophen (Acetaminophen 325 Mg Tablet) 650 mg PO Q6HP PRN; Protocol PRN Reason: Per Pain Protocol/Fever > 101 Hydrocodone Bitart/Acetaminophen (Hydrocodone/Apap 10/325mg Tablet) 0 tab PO Q4HP PRN; Protocol PRN Reason: Per Pain Protocol Last Admin: 02/03/21 22:20 Dose: 1 tab Documented by: Albuterol/Ipratropium (Ipratropium/Albuterol 3 Ml Ampul.Neb) 3 ml NEB Q4HRT PRN PRN Reason: Wheezing Aspirin (Aspirin 81 Mg Tab.Chew) 81 mg PO BID [facility] Last Admin: 02/03/21 20:40 Dose: 81 mg Documented by: Atorvastatin Calcium (Atorvastatin 20 Mg Tablet) 20 mg PO QDAY [facility] Bisacodyl (Bisacodyl 10 Mg Supp.Rect) 10 mg AR Q2-3DAYS PRN PRN Reason: Constipation Cefazolin Sodium (Cefazolin 1 Gm Vial) 2 gm IV Q8H [facility] Stop: 02/05/21 10:01 Last Admin: 02/04/21 01:52 Dose: 2 gm Documented by: Dextrose (Dextrose 50% 50 Ml Vial) 0 ml IV UD PRN PRN Reason: Hypoglycemia Diagnostic Test (Pha) (Accu-Chek 1 Each Strip) 1 each FS [facility] Last Admin: 02/03/21 19:02 Dose: 1 each Documented by: Docusate Sodium (Docusate Sodium 100 Mg Capsule) 100 mg PO BID [facility] Last Admin: 02/03/21 20:40 Dose: 100 mg Documented by: Glucose (Dextrose 31 Gm Oral.Susp) 15 gm PO PRN PRN PRN Reason: Hypoglycemia Lactated Ringer's (Lactated Ringers) 1,000 mls @ 100 mls/hr IV .Q10H [facility] Last Admin: 02/04/21 04:15 Dose: Not Given Documented by: Insulin Human Lispro (Insulin Lispro 1 Unit/0.01 Ml Unit) 0 unit SQ [facility]; Protocol Last Admin: 02/03/21 20:40 Dose: 1 unit Documented by: Ipratropium [place] (Ipratropium 0.03% Nasal [place] Bottle 30ml) 2 spray JESSICA TIDP PRN PRN Reason: allergy symptoms Magnesium Hydroxide (Magnesium Hydroxide 30 Ml Oral.Susp) 30 ml PO BIDP PRN PRN Reason: Constipation Methocarbamol (Methocarbamol 750 Mg Tablet) 750 mg PO Q6HP PRN PRN Reason: Muscle Spasm Morphine Sulfate (Morphine 4 Mg/Ml Vial) 4 mg IV Q4HP PRN; Protocol PRN Reason: Per Pain Protocol Morphine Sulfate (Morphine 4 Mg/Ml Vial) 0 mg IV Q1HP PRN; Protocol PRN Reason: Per Pain Protocol Ondansetron HCl (Ondansetron 4 Mg/2 Ml Vial) 4 mg IV Q6HP PRN PRN Reason: Nausea And Vomiting Ondansetron HCl (Ondansetron 4 Mg Odt Tablet) 4 mg SL Q4HP PRN; Protocol PRN Reason: Nausea And Vomiting Oxycodone HCl (Oxycodone Hcl 5 Mg Tablet) 5 mg PO Q4HP PRN; Protocol PRN Reason: Per Pain Protocol Polyethylene Glycol (Polyethylene Glycol 3350 17 Gm Packet) 17 gm PO DAILYP PRN PRN Reason: Constipation Senna (Sennosides 1 Tablet) 2 tab PO [facility] Last Admin: 02/03/21 20:40 Dose: Not Given Documented by: Sodium Biphosphate/Sodium Phosphate (Fleets Adult Enema) 1 dose AR Q3-4DAYS PRN PRN Reason: Constipation Sodium Chloride (0.9 % Sodium Chloride 10 Ml Syringe) 10 ml IV Q8 [facility] Last Admin: 02/04/21 04:15 Dose: Not Given Documented by: Tamsulosin HCl (Tamsulosin 0.4 Mg Capsule) 0.4 mg PO QHS [facility] Last Admin: 02/03/21 20:40 Dose: 0.4 mg Documented by: Throat Lozenges (Benzocaine/Menthol 1 Lozenge) 1 lozenge PO PRN PRN PRN Reason: Sore Throat Zolpidem Tartrate (Zolpidem 5 Mg Tablet) 5 mg PO HSP PRN PRN Reason: Insomnia A/P Narrative A/P Narrative: Patient seen and examined this am. resting comfortably but arousable, conversant and cooperative. Has no complaints of pain on current regimen. Dressing at RLE clean dry and intact. Both lower extremities are warm, well perfused and neuro intact. SCDs in place He has yet to ambulate, anticipate PT this am. WBAT with walker/ PT Plan is for expected discharge today or tomorrow to patients home where he endorses he has assistance with follow up at [facility] in 10-14 days. Time Spent With Patient Time: Total time spent is greater than 50% in coordination of care (as documented) at patient's floor/unit and/or counseling patient:
[2021-02-04 07:26] LABS: ALT/SGPT 17 U/L (<40); AST/SGOT 15 U/L (<40); Albumin 3.4 gm/dL (3.2-5.2); Albumin/Globulin Ratio 1.4 (1.0-2.3); Alkaline Phosphatase 75 U/L (39-117); Bilirubin,Total 0.3 mg/dL (0.1-1.0); Blood Urea Nitrogen 23 mg/dL (8-23); Calcium 8.8 mg/dL (8.6-10.4); Carbon Dioxide 21 mmol/L (22-30); Chloride 98 mmol/L (96-108); Globulin 2.4 gm/dL (2.2-3.7); Glomerular Filtration Rate 62; Glucose 176 mg/dL (70-105)
[2021-02-04] MEDS: INSULIN LISPRO 1 UNIT/0.01 ML UNIT SQ SCH ×4 (08:10→20:42)
[2021-02-04] MEDS: ASPIRIN 81 MG TAB.CHEW PO SCH ×2 (08:10→20:40)
[2021-02-04] MEDS: DOCUSATE SODIUM 100 MG CAPSULE PO SCH ×2 (08:10→20:40)
[2021-02-04] MEDS: ATORVASTATIN 20 MG TABLET PO SCH (08:10)
[2021-02-04] MEDS ORDERED: ceFAZolin 1 GM VIAL IV SCH (10:45)
[2021-02-04] MEDS ORDERED: CALCIUM GLUCONATE 4.65 MEQ/10 ML VIAL IV ONE (11:23)
[2021-02-04] MEDS ORDERED: FUROSEMIDE 40 MG/4 ML VIAL IV ONE (11:23)
[2021-02-04] MEDS ORDERED: DEXTROSE 50% 50 ML VIAL IV ONE (11:23)
[2021-02-04] MEDS ORDERED: INSULIN REGULAR, HUMAN 1 UNIT/0.01 ML UNIT IV ONE (11:23)
[2021-02-04] MEDS ORDERED: CALCIUM GLUCONATE 9.3 MEQ in DEXTROSE 5% IN WATER 50 ML IV ONE (11:30)
--- NOTE | 2021-02-04 11:30 | Internal Med Progress Note ---
SUBJECTIVE Subjective Patient information: Note initiated : 02/04/21 at 11:26 am Service Date, if different from initiated Date: [] Patient: Cirilo Matthew 80 y/o M admitted on 02/03/21 for Fall, hip pain. Chief Complaint: [] Interval history: History of present illness: Mr. Matthew is a 80 year old diabetic resident of [place] who was visiting a friend when he suffered a mechanical fall, he was transported to [facility] ED where imaging revealed a intertrochanteric fracture of the right hip. Dr. Medina of orthopedics was consulted for treatment. 02/04: s/p right TFNA hip nail by Dr. Medina on 02/03, tolerated the surgery very well. Denies any hip pain. Denies any SOB. Constitutional Vitals: Vital Signs Temp Pulse Resp BP Pulse Ox 36.3 C 81 20 113/56 93 02/04/21 07:59 02/04/21 05:50 02/04/21 07:59 02/04/21 07:59 02/04/21 07:59 Period Temp Pulse Resp BP Sys/Sharif Pulse Ox Last 24 Hr 36.2 C-37.0 C 52-95 13-20 91-140/35-87 88-100 Intake and Output 02/03/21 02/04/21 02/04/21 21:59 05:59 13:59 Intake Total 1050 450 Output Total 375 625 Balance 675 -175 Weight 94.801 kg Intake & Output: Intake & Output 02/03/21 02/04/21 02/04/21 21:59 05:59 13:59 Intake Total 1050 450 Output Total 375 625 Balance 675 -175 Weight 94.801 kg Intake: IV 50 400 Lactated Ringers 1,000 ml @ 100 400 mls/hr IV .Q10H CHEN Rx#: [id number] Ancef 2 gm In Dextrose 5% in 50 Water 50 ml @ 100 mls/hr IV PREOP CHEN Rx#:[id number] Oral 0 50 IV - Manual Only 1000 Output: Urine Catheter Amount 300 625 Estimated Blood Loss 75 Other: Urine Appearance Clear Clear Uretheral (Cm) Clear Urine Color Bright Yellow Bright Yellow Uretheral (Cm) Bright Yellow Head Head exam: Present atraumatic and normal inspection Eye Eye exam: Present normal appearance ENT ENT exam: Present mucous membranes moist, normal exam and normal external ear exam Neck Neck exam: Present normal inspection Respiratory Respiratory exam: Present normal respiratory exam Cardiovascular Cardiovascular exam: Present normal rate and rhythm GI/Abdominal GI/Abdominal exam: Present normal bowel sounds Extremities Exam Extremities exam: Present full ROM and tenderness; Absent normal inspection Additional comments: right lateral hip covered by surgical dressing Back Exam Back exam: Present normal inspection Neurological Exam Neurological exam: Present alert and oriented X3 Skin Skin exam: Present intact and warm OBJ DATA Labs CBC & Chem 7: 02/04/21 05:23 02/04/21 05:23 Labs: Abnormal Lab Results 02/04/21 02/04/21 02/03/21 05:23 05:23 14:31 WBC 11.9 H RBC 3.24 L Hgb 10.2 L Hct 31.5 L MPV 10.8 H Neut % (Auto) 89.2 H Lymph % (Auto) 4.2 L Lymph # (Auto) 0.50 L Absolute Neutrophils 10.61 H Sodium 131 L Potassium 5.4 H Carbon Dioxide 21 L Glucose 176 H Total Protein 5.8 L Urine Appearance Hazy A 02/03/21 02/03/21 13:23 13:23 WBC RBC 3.99 L Hgb 12.7 L Hct 39.0 L MPV 10.5 H Neut % (Auto) Lymph % (Auto) Lymph # (Auto) 1.24 L Absolute Neutrophils Sodium Potassium Carbon Dioxide Glucose 166 H Total Protein Urine Appearance Meds: Medications Acetaminophen (Acetaminophen 325 Mg Tablet) 650 mg PO Q6HP PRN; Protocol PRN Reason: Per Pain Protocol/Fever > 101 Last Admin: 02/04/21 10:31 Dose: 650 mg Documented by: Hydrocodone Bitart/Acetaminophen (Hydrocodone/Apap 10/325mg Tablet) 0 tab PO Q4HP PRN; Protocol PRN Reason: Per Pain Protocol Last Admin: 02/03/21 22:20 Dose: 1 tab Documented by: Albuterol/Ipratropium (Ipratropium/Albuterol 3 Ml Ampul.Neb) 3 ml NEB Q4HRT PRN PRN Reason: Wheezing Aspirin (Aspirin 81 Mg Tab.Chew) 81 mg PO BID [facility] Last Admin: 02/04/21 08:10 Dose: 81 mg Documented by: Atorvastatin Calcium (Atorvastatin 20 Mg Tablet) 20 mg PO QDAY [facility] Last Admin: 02/04/21 08:10 Dose: 20 mg Documented by: Bisacodyl (Bisacodyl 10 Mg Supp.Rect) 10 mg ND Q2-3DAYS PRN PRN Reason: Constipation Calcium Gluconate (Calcium Gluconate 4.65 Meq/10 Ml Vial) 9.3 meq IV ONCE ONE Stop: 02/04/21 11:24 Dextrose (Dextrose 50% 50 Ml Vial) 0 ml IV UD PRN PRN Reason: Hypoglycemia Dextrose (Dextrose 50% 50 Ml Vial) 25 ml IV ONCE ONE Stop: 02/04/21 11:24 Diagnostic Test (Pha) (Accu-Chek 1 Each Strip) 1 each FS [facility] Last Admin: 02/04/21 08:11 Dose: 1 each Documented by: Docusate Sodium (Docusate Sodium 100 Mg Capsule) 100 mg PO BID [facility] Last Admin: 02/04/21 08:10 Dose: 100 mg Documented by: Furosemide (Furosemide 40 Mg/4 Ml Vial) 40 mg IV ONCE ONE Stop: 02/04/21 11:24 Glucose (Dextrose 31 Gm Oral.Susp) 15 gm PO PRN PRN PRN Reason: Hypoglycemia Lactated Ringer's (Lactated Ringers) 1,000 mls @ 100 mls/hr IV .Q10H [facility] Last Admin: 02/04/21 04:15 Dose: Not Given Documented by: Insulin Human Lispro (Insulin Lispro 1 Unit/0.01 Ml Unit) 0 unit SQ [facility]; Protocol Last Admin: 02/04/21 08:10 Dose: 1 unit Documented by: Insulin Human Regular (Insulin Regular, Human 1 Unit/0.01 Ml Unit) 10 unit IV ONCE ONE Stop: 02/04/21 11:24 Ipratropium [place] (Ipratropium 0.03% Nasal [place] Bottle 30ml) 2 spray JESSICA TIDP PRN PRN Reason: allergy symptoms Magnesium Hydroxide (Magnesium Hydroxide 30 Ml Oral.Susp) 30 ml PO BIDP PRN PRN Reason: Constipation Methocarbamol (Methocarbamol 750 Mg Tablet) 750 mg PO Q6HP PRN PRN Reason: Muscle Spasm Morphine Sulfate (Morphine 4 Mg/Ml Vial) 4 mg IV Q4HP PRN; Protocol PRN Reason: Per Pain Protocol Morphine Sulfate (Morphine 4 Mg/Ml Vial) 0 mg IV Q1HP PRN; Protocol PRN Reason: Per Pain Protocol Ondansetron HCl (Ondansetron 4 Mg/2 Ml Vial) 4 mg IV Q6HP PRN PRN Reason: Nausea And Vomiting Ondansetron HCl (Ondansetron 4 Mg Odt Tablet) 4 mg SL Q4HP PRN; Protocol PRN Reason: Nausea And Vomiting Oxycodone HCl (Oxycodone Hcl 5 Mg Tablet) 5 mg PO Q4HP PRN; Protocol PRN Reason: Per Pain Protocol Polyethylene Glycol (Polyethylene Glycol 3350 17 Gm Packet) 17 gm PO DAILYP PRN PRN Reason: Constipation Senna (Sennosides 1 Tablet) 2 tab PO HS [facility] Last Admin: 02/03/21 20:40 Dose: Not Given Documented by: Sodium Biphosphate/Sodium Phosphate (Fleets Adult Enema) 1 dose ND Q3-4DAYS PRN PRN Reason: Constipation Sodium Chloride (0.9 % Sodium Chloride 10 Ml Syringe) 10 ml IV Q8 [facility] Last Admin: 02/04/21 04:15 Dose: Not Given Documented by: Tamsulosin HCl (Tamsulosin 0.4 Mg Capsule) 0.4 mg PO QHS [facility] Last Admin: 02/03/21 20:40 Dose: 0.4 mg Documented by: Throat Lozenges (Benzocaine/Menthol 1 Lozenge) 1 lozenge PO PRN PRN PRN Reason: Sore Throat Zolpidem Tartrate (Zolpidem 5 Mg Tablet) 5 mg PO HSP PRN PRN Reason: Insomnia A/P Assessment and plan (1) Closed fracture of right hip: Status: Acute (2) Dyslipidemia: Status: Chronic (3) Hypertension: Status: Chronic (4) Type 2 diabetes mellitus: Status: Chronic (5) Chronic kidney disease (CKD) stage G3a/A1, moderately decreased glomerular filtration rate (GFR) between 45-59 mL/min/1.73 square meter and albuminuria cre atinine ratio less than 30 mg/g: Status: Acute Narrative A/P Narrative: Assessment and Plans: 1. Right comminuted displaced right intratrochanteric hip fracture: Stays in inpatient med surg Dr. Medina performed right TFNA hip nail on 02/03 Ambulated as tolerated as instructed by ortho and PT Tylenol PRN mild pain Oxycodone PRN moderate pain Morphine IV PRN severe pain Physical therapy Occupational therapy 2. T2DM: HgA1c Hold Metformin Low dose correctional scale insulin AC HS Accu Chek AC HS Hypoglycemia protocol Diabetic diet 3. Essential HTN: Currently soft blood pressure Hold oral antihypertensives for now 4. Mixed dyslipidemia: Statin therapy 5. Chronic kidney disease stage 3: Avoid nephrotoxic agents LR@100cc/hr CMP in the morning to trend kidney functions GI ppx: not currently indicated DVT ppx: SCDs Code status: Full Prognosis: stable Disposition: inpatient med surg; PT OT Time Spent With Patient Time: Total time spent is greater than 50% in coordination of care (as documented) at patient's floor/unit and/or counseling patient: QUALITY VTE Deep Vein Thrombosis/Pulmonary Embolism Present on Admission: No
[2021-02-04 16:17] LABS: Blood Urea Nitrogen 33 mg/dL (8-23); Calcium 9.6 mg/dL (8.6-10.4); Carbon Dioxide 19 mmol/L (22-30); Chloride 94 mmol/L (96-108); Glomerular Filtration Rate 43; Glucose 95 mg/dL (70-105)
[2021-02-04] MEDS ORDERED: CALCIUM CARBONATE 500 MG TAB.CHEW CHEWED PRN (16:48)
[2021-02-04] MEDS: HYDROcodone/APAP 10/325MG TABLET PO PRN ×2 (18:29→20:40)
[2021-02-04] MEDS: TAMSULOSIN 0.4 MG CAPSULE PO SCH (20:40)
[2021-02-04] MEDS: SENNOSIDES 1 TABLET PO SCH (20:42)
[2021-02-05] MEDS: HYDROcodone/APAP 10/325MG TABLET PO PRN ×4 (00:43→14:33)
[2021-02-05] MEDS ORDERED: ceFAZolin 1 GM VIAL IV SCH (02:00)
[2021-02-05] MEDS: 0.9 % SODIUM CHLORIDE 10 ML SYRINGE IV SCH ×2 (05:20→14:35)
[2021-02-05 06:56] LABS: Basophils # (Auto) 0.02 K/mcL (0.00-0.30); Basophils % (Auto) 0.1 % (0.0-2.0); Eosinophils # (Auto) 0 K/mcL (0.00-0.70); Eosinophils % (Auto) 0 % (0.0-7.0); Hematocrit 30.4 % (40.1-51.0); Hemoglobin 9.7 g/dL (13.7-17.5); Lymphocytes # (Auto) 1.57 K/mcL (1.50-4.80); Lymphocytes % (Auto) 9.2 % (15.5-49.0); Mean Cell Volume 98.1 fL (80.0-100.0); Mean Corpuscular HGB Conc 31.9 g/dL (31.0-36.0); Mean Platelet Volume 10.6 fL (7.4-10.4); Monocytes # (Auto) 1.76 K/mcL (0.10-0.90); Monocytes % (Auto) 10.3 % (1.0-12.0); Neutrophils % (Auto) 80.4 % (38.0-78.0); Platelet Count 203 K/mcL (140-440); Red Cell Distribution Width 12.7 % (11.5-14.5); WBC 17.1 K/mcL (4.5-11.0)
--- NOTE | 2021-02-05 07:39 | EKG ---
[facility] Test Date: 2021-02-03 Pat Name: Cirilo Matthew Department: ED Room: Gender: Male Lot Porter: LR : 1940 Requested By: Yany Shaikh Order Number: [id number] Reading MD: Ken Stallings Measurements Intervals [place] Rate: 54 P: 80 OR: 156 QRS: -19 QRSD: 86 T: 54 QT: 448 QTc: 425 Interpretive Statements SINUS RHYTHM BORDERLINE LEFT AXIS DEVIATION Electronically Signed On 02-05-2021 7:39:26 PST by Ken Stallnigs /store/[email or web address]/[id number]
[2021-02-05 07:59] LABS: ALT/SGPT 10 U/L (<40); AST/SGOT 22 U/L (<40); Albumin 3.5 gm/dL (3.2-5.2); Albumin/Globulin Ratio 1.3 (1.0-2.3); Alkaline Phosphatase 76 U/L (39-117); Bilirubin,Total 0.4 mg/dL (0.1-1.0); Blood Urea Nitrogen 38 mg/dL (8-23); Calcium 9.6 mg/dL (8.6-10.4); Carbon Dioxide 20 mmol/L (22-30); Chloride 99 mmol/L (96-108); Globulin 2.7 gm/dL (2.2-3.7); Glomerular Filtration Rate 43; Glucose 116 mg/dL (70-105)
--- NOTE | 2021-02-05 08:18 | Orthopedic Progress Note ---
SUBJECTIVE Subjective Patient information: Note initiated : 02/05/21 at 8:08 am Service Date, if different from initiated Date: [] Patient: Cirilo Matthew 80 y/o M admitted on 02/03/21 for Fall, hip pain. Chief Complaint: [S/P TFNA nail right hip ] Pertinent ROS: 10 point review of systems performed and is negative except where mentioned. Constitutional Vitals: Vital Signs Temp Pulse Resp BP Pulse Ox 97.5 F 63 17 101/45 91 02/05/21 06:48 02/05/21 06:48 02/05/21 06:48 02/05/21 06:48 02/05/21 06:48 Period Temp Pulse Resp BP Sys/Sharif Pulse Ox Last 24 Hr 97.3 F-99.2 F 63-91 16-20 101-147/45-65 91-94 Intake and Output 02/04/21 02/05/21 02/05/21 21:59 05:59 13:59 Intake Total 1070 200 Output Total 1800 500 475 Balance -730 -300 -475 Weight 207 lb 3.2 oz Intake & Output: Intake & Output 02/04/21 02/05/21 02/05/21 21:59 05:59 13:59 Intake Total 1070 200 Output Total 1800 500 475 Balance -730 -300 -475 Weight 207 lb 3.2 oz Intake: IV 70 Calcium Gluconate 9.3 Meq In 70 Dextrose 5% in Water 50 ml @ 70 mls/hr IV ONCE ONE Rx#: [id number] Oral 1000 200 Output: Urine Catheter Amount 1025 500 475 Uretheral (Cm) 1025 500 Void Amount 775 Other: Urine Appearance Clear Clear Uretheral (Cm) Clear Clear Clear Urine Color Pale Pale Uretheral (Cm) Pale Pale Pale Urine Odor Normal Uretheral (Cm) Normal OBJ DATA Labs CBC & Chem 7: 02/05/21 05:31 02/05/21 05:31 Labs: Abnormal Lab Results 02/05/21 02/05/21 02/04/21 05:31 05:31 15:07 WBC 17.1 H RBC 3.10 L Hgb 9.7 L Hct 30.4 L MPV 10.6 H Neut % (Auto) 80.4 H Lymph % (Auto) 9.2 L Lymph # (Auto) Graham # (Auto) 1.76 H Absolute Neutrophils 13.74 H Sodium 131 L Potassium Chloride 94 L Carbon Dioxide 20 L 19 L Anion Gap 18.0 H BUN 38 H 33 H Creatinine 1.5 H 1.5 H Glucose 116 H Total Protein Urine Appearance 02/04/21 02/04/21 02/03/21 05:23 05:23 14:31 WBC 11.9 H RBC 3.24 L Hgb 10.2 L Hct 31.5 L MPV 10.8 H Neut % (Auto) 89.2 H Lymph % (Auto) 4.2 L Lymph # (Auto) 0.50 L Graham # (Auto) Absolute Neutrophils 10.61 H Sodium 131 L Potassium 5.4 H Chloride Carbon Dioxide 21 L Anion Gap BUN Creatinine Glucose 176 H Total Protein 5.8 L Urine Appearance Hazy A 02/03/21 02/03/21 13:23 13:23 WBC RBC 3.99 L Hgb 12.7 L Hct 39.0 L MPV 10.5 H Neut % (Auto) Lymph % (Auto) Lymph # (Auto) 1.24 L Graham # (Auto) Absolute Neutrophils Sodium Potassium Chloride Carbon Dioxide Anion Gap BUN Creatinine Glucose 166 H Total Protein Urine Appearance Meds: Medications Acetaminophen (Acetaminophen 325 Mg Tablet) 650 mg PO Q6HP PRN; Protocol PRN Reason: Per Pain Protocol/Fever > 101 Last Admin: 02/04/21 10:31 Dose: 650 mg Documented by: Hydrocodone Bitart/Acetaminophen (Hydrocodone/Apap 10/325mg Tablet) 0 tab PO Q4HP PRN; Protocol PRN Reason: Per Pain Protocol Last Admin: 02/05/21 05:19 Dose: 2 tab Documented by: Albuterol/Ipratropium (Ipratropium/Albuterol 3 Ml Ampul.Neb) 3 ml NEB Q4HRT PRN PRN Reason: Wheezing Aspirin (Aspirin 81 Mg Tab.Chew) 81 mg PO BID [facility] Last Admin: 02/04/21 20:40 Dose: 81 mg Documented by: Atorvastatin Calcium (Atorvastatin 20 Mg Tablet) 20 mg PO QDAY [facility] Last Admin: 02/04/21 08:10 Dose: 20 mg Documented by: Bisacodyl (Bisacodyl 10 Mg Supp.Rect) 10 mg IA Q2-3DAYS PRN PRN Reason: Constipation Calcium Carbonate/Glycine (Calcium Carbonate 500 Mg Tab.Chew) 500 mg CHEWED TIDCC PRN PRN Reason: Indigestion Dextrose (Dextrose 50% 50 Ml Vial) 0 ml IV UD PRN PRN Reason: Hypoglycemia Diagnostic Test (Pha) (Accu-Chek 1 Each Strip) 1 each FS [facility] Last Admin: 02/04/21 20:42 Dose: 1 each Documented by: Docusate Sodium (Docusate Sodium 100 Mg Capsule) 100 mg PO BID [facility] Last Admin: 02/04/21 20:40 Dose: 100 mg Documented by: Glucose (Dextrose 31 Gm Oral.Susp) 15 gm PO PRN PRN PRN Reason: Hypoglycemia Insulin Human Lispro (Insulin Lispro 1 Unit/0.01 Ml Unit) 0 unit SQ [facility]; Protocol Last Admin: 02/04/21 20:42 Dose: Not Given Documented by: Ipratropium [place] (Ipratropium 0.03% Nasal [place] Bottle 30ml) 2 spray JESSICA TIDP PRN PRN Reason: allergy symptoms Magnesium Hydroxide (Magnesium Hydroxide 30 Ml Oral.Susp) 30 ml PO BIDP PRN PRN Reason: Constipation Methocarbamol (Methocarbamol 750 Mg Tablet) 750 mg PO Q6HP PRN PRN Reason: Muscle Spasm Morphine Sulfate (Morphine 4 Mg/Ml Vial) 4 mg IV Q4HP PRN; Protocol PRN Reason: Per Pain Protocol Morphine Sulfate (Morphine 4 Mg/Ml Vial) 0 mg IV Q1HP PRN; Protocol PRN Reason: Per Pain Protocol Ondansetron HCl (Ondansetron 4 Mg/2 Ml Vial) 4 mg IV Q6HP PRN PRN Reason: Nausea And Vomiting Ondansetron HCl (Ondansetron 4 Mg Odt Tablet) 4 mg SL Q4HP PRN; Protocol PRN Reason: Nausea And Vomiting Oxycodone HCl (Oxycodone Hcl 5 Mg Tablet) 5 mg PO Q4HP PRN; Protocol PRN Reason: Per Pain Protocol Polyethylene Glycol (Polyethylene Glycol 3350 17 Gm Packet) 17 gm PO DAILYP PRN PRN Reason: Constipation Senna (Sennosides 1 Tablet) 2 tab PO [facility] Last Admin: 02/04/21 20:42 Dose: Not Given Documented by: Sodium Biphosphate/Sodium Phosphate (Fleets Adult Enema) 1 dose IA Q3-4DAYS PRN PRN Reason: Constipation Sodium Chloride (0.9 % Sodium Chloride 10 Ml Syringe) 10 ml IV Q8 [facility] Last Admin: 02/05/21 05:20 Dose: 10 ml Documented by: Tamsulosin HCl (Tamsulosin 0.4 Mg Capsule) 0.4 mg PO QHS [facility] Last Admin: 02/04/21 20:40 Dose: 0.4 mg Documented by: Throat Lozenges (Benzocaine/Menthol 1 Lozenge) 1 lozenge PO PRN PRN PRN Reason: Sore Throat Zolpidem Tartrate (Zolpidem 5 Mg Tablet) 5 mg PO HSP PRN PRN Reason: Insomnia A/P Narrative A/P Narrative: Patient seen and examined this am. Awake, alert, conversant, eager for discharge. Has no complaints of pain at this time on current regimen. Dressing at [facility] clean dry and intact. Both LE are warm, well perfused and neuro intact. Patient endorses occasional ambulation w/ walker, PT assistance. Patient is stable from ortho standpoint, will defer final dispo to attending hospitalist. Plan is for expected discharge today to patients own home w/ home health, PT with f/u at [facility] in 10-14 days WB as tolerated w/ walker continue PT Time Spent With Patient Time: Total time spent is greater than 50% in coordination of care (as documented) at patient's floor/unit and/or counseling patient:
[2021-02-05] MEDS: DOCUSATE SODIUM 100 MG CAPSULE PO SCH (09:17)
[2021-02-05] MEDS: ASPIRIN 81 MG TAB.CHEW PO SCH (09:17)
[2021-02-05] MEDS: ATORVASTATIN 20 MG TABLET PO SCH (09:17)
[2021-02-05] MEDS: INSULIN LISPRO 1 UNIT/0.01 ML UNIT SQ SCH ×2 (09:17→11:30)
--- NOTE | 2021-02-05 10:23 | Discharge Summary ---
Discharge Provider Provider Patient information: Note initiated : 02/05/21 at 10:17 am Service Date, if different from initiated Date: [] Patient: Cirilo Matthew 80 y/o M admitted on 02/03/21 for Fall, hip pain. Chief Complaint: [] Date of admission: 02/03/21 14:55 Discharge date: 02/05/21 Primary care physician: Jessica Parker DO Attending physician on admission: Harjinder Russo Consults: 02/03/21 Consult to Physician [CONS] Stat Comment: Consulting Provider: Sean Medina Reason For Exam: Physician to Consult Consult to Physician [CONS] Stat Comment: Consulting Provider: Harjinder Russo Reason For Exam: Physician to Consult Attending physician on discharge: Harjinder Russo Discharge Meds Discharge Medications Home Medications atorvastatin 20 mg tablet (Lipitor) 20 mg PO QDAY #90 tab 01/02/21 [Rx Confirmed 02/03/21 Last Taken 02/03/21] lisinopril 20 mg tablet 20 mg PO QDAY #90 tab 01/02/21 [Rx Confirmed 02/03/21 Last Taken 02/03/21] metformin 500 mg tablet,extended release 24 hr 500 mg PO QDAY #90 tab 01/02/21 [Rx Confirmed 02/03/21 Last Taken 02/03/21] tamsulosin 0.4 mg capsule (Flomax) 0.4 mg PO QHS #90 cap 01/02/21 [Rx Confirmed 02/03/21 Last Taken 02/02/21] aspirin 81 mg tablet,delayed release (Aspirin Low Dose) 81 mg PO BID #30 tab 02/03/21 [Rx Last Taken Unknown] hydrocodone 10 mg-acetaminophen 325 mg tablet 1 - 2 tab PO Q4H PRN #60 tab 02/03/21 [Rx Last Taken Unknown] docusate sodium 100 mg capsule 100 mg PO BID #10 cap 02/05/21 [Rx Last Taken Unknown] sennosides 8.6 mg tablet (Senna Lax) 2 tab PO HS #10 tab 02/05/21 [Rx Last Taken Unknown] COURSE Hospital Course Hospital course: History of present illness: Mr. 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 Dr. Medina of orthopedics was consulted for treatment. 02/04: s/p right TFNA hip nail by Dr. Medina on 02/03, tolerated the surgery very well. Denies any hip pain. Denies any SOB. 02/05: Reached clinical stability. Discharged home with home health physical therapy. Rx given. 10-14 days follow up appointment with orthopedic surgeon. All questions were answered prior to patient being physically discharged. Discharge diagnosis: right hip fracture Time Spent with Patient Time attestation: Total time spent providing and/or coordinating discharge services: Time spent: Less than 30 minutes EXAM Constitutional Vitals: Temp Pulse Resp BP Pulse Ox 36.4 C 63 17 101/45 91 02/05/21 06:48 02/05/21 06:48 02/05/21 06:48 02/05/21 06:48 02/05/21 06:48 General appearance: cooperative and no acute distress Head Head exam: Present atraumatic and normocephalic Eye Eye exam: Present EOMI and PERRL ENT ENT exam: Present mucous membranes moist, normal exam and normal external ear exam Neck Neck exam: Present normal inspection; Absent lymphadenopathy, tenderness or thyromegaly Respiratory Respiratory exam: Absent accessory muscle use, respiratory distress or wheezes Cardiovascular Cardiovascular exam: Present normal rate and rhythm; Absent JVD GI/Abdominal GI/Abdominal exam: Present normal bowel sounds and soft; Absent organomegaly or tenderness Rectal Rectal exam: Present deferred Additional comments: Cm catheter in place Extremities Exam Extremities exam: Present normal capillary refill and tenderness; Absent full ROM or normal inspection Additional comments: right lateral hip covered by surgical dressing Neurological Exam Neurological exam: Present alert, CN II-XII intact and oriented X3; Absent motor sensory deficit Psychiatric Psychiatric exam: Present normal affect and normal mood; Absent anxious or depressed Skin Skin exam: Present dry and intact Discharge Data Data Completed and Pending Labs on day of discharge: Labs from last 24 hours 02/05/21 02/05/21 02/05/21 05:31 05:31 05:29 WBC 17.1 H RBC 3.10 L Hgb 9.7 L Cancelled Hct 30.4 L Cancelled MCV 98.1 MCH 31.3 MCHC 31.9 RDW 12.7 Plt Count 203 MPV 10.6 H Neut % (Auto) 80.4 H Lymph % (Auto) 9.2 L [place] % (Auto) 10.3 Eos % (Auto) 0 Baso % (Auto) 0.1 Lymph # (Auto) 1.57 [place] # (Auto) 1.76 H Eos # (Auto) 0 Baso # (Auto) 0.02 Absolute Neutrophils 13.74 H Sodium 133 Potassium 4.9 Chloride 99 Carbon Dioxide 20 L Anion Gap 14.0 BUN 38 H Creatinine 1.5 H GFR Calculation 43 Glucose 116 H Calcium 9.6 Magnesium 2.3 Total Bilirubin 0.4 AST 22 ALT 10 Alkaline Phosphatase 76 Total Protein 6.2 Albumin 3.5 Globulin 2.7 Albumin/Globulin Ratio 1.3 02/04/21 15:07 WBC RBC Hgb Hct MCV MCH MCHC RDW Plt Count MPV Neut % (Auto) Lymph % (Auto) [place] % (Auto) Eos % (Auto) Baso % (Auto) Lymph # (Auto) [place] # (Auto) Eos # (Auto) Baso # (Auto) Absolute Neutrophils Sodium 131 L Potassium 4.8 Chloride 94 L Carbon Dioxide 19 L Anion Gap 18.0 H BUN 33 H Creatinine 1.5 H GFR Calculation 43 Glucose 95 Calcium 9.6 Magnesium Total Bilirubin AST ALT Alkaline Phosphatase Total Protein Albumin Globulin Albumin/Globulin Ratio Discharge Plan Patient/Caregiver Discharge Instructions Activity: as per physical therapy and as instructed Diet: Regular Diet Prescriptions: New hydrocodone-acetaminophen 10-325 mg Tablet 1 - 2 tab PO Q4H PRN (Reason: Pain) Qty: 60 0RF aspirin [Aspirin Low Dose] 81 mg Tablet,Delayed Release (Dr/Ec) 81 mg PO BID Qty: 30 0RF sennosides [Senna Lax] 8.6 mg Tablet 2 tab PO HS Qty: 10 0RF docusate sodium 100 mg Capsule 100 mg PO BID Qty: 10 0RF Continued metformin 500 mg tablet extended release 24 hr 500 mg PO QDAY Qty: 90 1RF lisinopril 20 mg tablet 20 mg PO QDAY Qty: 90 1RF atorvastatin [Lipitor] 20 mg tablet 20 mg PO QDAY Qty: 90 1RF tamsulosin [Flomax] 0.4 mg capsule 0.4 mg PO QHS Qty: 90 1RF Other Ambulatory Orders: Physical Therapy DC - General (Routine) Location: None Selected Ordered By: Sean Genao (ONCE) Location: None Selected Ordered By: Sean Medina Follow Up Plan Follow up with: Sean Medina MD [Physician] - Jessica Parker DO [Primary Care Provider] - Patient Disposition: Xfer SNF Rehab Potential: Good I certify that the patient requires SNF services: Yes Overall status at discharge: patient is progressing back to baseline Discharge Orders: Discharge Order (Routine); Ordered 02/05/21 Ordered By: Sean Medina Discharge Comment: cc: hip fracture QUALITY VTE Deep Vein Thrombosis/Pulmonary Embolism Present on Admission: No
--- NOTE | 2021-02-06 14:18 | Operative Note ---
DATE OF OPERATION: 02/03/2021 PREOPERATIVE DIAGNOSIS: Intertrochanteric fracture, right hip. POSTOPERATIVE DIAGNOSIS: Intertrochanteric fracture, right hip. PROCEDURE: Right hip cephalomedullary nailing. SURGEON: Sean Medina M.D. RESIDENTIAL SUBCONTRACTOR SURGEON: Jaciel Diaz PA-C. The PA's assistance was required for the safe and efficient completion of the entire case. This providers expertise and technical skill were required throughout the case. The PA assisted with preoperative coordination, intraoperative retraction, limb manipulation, wound closure, dressing application, as well as post-operative documentation and care coordination. ANESTHESIA: Spinal with LMA assist. ESTIMATED BLOOD LOSS: 150 mL COMPLICATIONS: None noted. SPECIMENS REMOVED: None. DRAINS: None. IMPLANTS: Synthes TFNA fenestrated helical blade 105 mm, Synthes 11 x 130 degree titanium cannulated TFNA 170 mm sterile, Synthes 5.0 titanium locking screw, standard 42 mm length. INDICATIONS: The patient fell and was unable to ambulate. Radiographs have confirmed a displaced intertrochanteric fracture of the proximal femur. The patient was admitted to the hospital and underwent medical clearance. After a long discussion about treatment options, the patient elected to proceed with cephalomedullary nailing. The risks and benefits were discussed with the patient in detail including, but not limited to, the risks of anesthesia, problems with the heart or lungs related to anesthesia, infection, compromise or injury to the nerves and blood vessels, deep venous thrombosis, pulmonary embolism, pneumonia, continued pain after surgery, worsening pain or symptoms after surgery, swelling, loss of motion, malunion, non-union, leg length discrepancy, and need for repeat surgery. DESCRIPTION OF PROCEDURE: The patient was seen in pre-anesthesia waiting room where all questions were answered and the correct side and site were identified and marked. The patient was then brought to the operating room and administered the anesthetic, tranexamic acid, and given pre-operative antibiotics. A time-out was then called. The patient was placed on the fracture table with all prominences well padded. The leg was brought into traction, adduction, and slight internal rotation. We used c-arm with orthogonal views to confirm anatomic reduction of the fracture. The extremity was prepped and draped in the usual sterile fashion. C-arm was again used to confirm landmarks. A percutaneous incision was created about 4 centimeters proximal to the greater trochanter. A guide pin was placed into the femoral canal under fluoroscopy after we found the appropriate starting position along the medial boarder of the trochanter and just anterior to the center position laterally. We placed a protector sleeve proximally and over-reamed with the 17 mm proximal reamer. Next, we changed out the guide pin for a ball-tipped guide ladan and placed it into the femoral canal. Position was confirmed with the c-arm. The 170 mm Synthes TFNa nail was then placed with appropriate depth and version using the percutaneous targeting guide. The lateral helical blade sleeve was placed in the targeting guide and a second small percutaneous incision was made to allow the sleeve access to the lateral cortex of the femur. We drilled the guide pin into the center center position of the femoral head confirmed with fluoroscopy. We measured and drilled over the guide pin. The helical blade was then inserted and we compressed the fracture. The targeting sleeve was again used to place a percutaneous 5.0 mm screw distally in the static hole. It was drilled, measured, and placed using c-arm guidance. Traction was removed on the hip. The targeting device was then removed and final radiographs were taken confirming reduction of the fracture and adequate placement of all hardware. We thoroughly irrigated the three percutaneous incisions and closed the deep fascia with #0 Vicryl. We closed the subcutaneous tissue and skin in layers out to syeda in the skin. A sterile pressure dressing was applied. All needle and sponge counts were correct. The patient was transferred to the recovery room in stable condition. CIRA:liliana Job ID: [id number] Doc ID: [id number] Rizwana Medina MD
== END 2021-02-05 14:30 | DRG 482 ==
LOC: ED 11:50 → MEDSUR 14:48
PROVIDERS: ADMIT Internal Medicine; ATTEND Internal Medicine